=== PATIENT | female | born 1960 | race Caucasian/White ===

== ENCOUNTER 2016-11-14 06:51 | Day surgery (SDC) | payer BC ==
[2016-11-14] MEDS ORDERED: Lactated Ringers 1,000 ML IV SCH (07:30)
[2016-11-14] MEDS ORDERED: fentaNYL 100 MCG/2 ML SDV ONE (07:53)
[2016-11-14] MEDS ORDERED: Propofol 200 MG/20 ML SDV ONE (07:53)
[2016-11-14] MEDS ORDERED: Midazolam 1 MG/ML 2 ML SDV ONE (07:54)
[2016-11-14 09:54] VITALS: BP 120/75
--- NOTE | 2016-11-14 14:17 | OR ---
DATE OF PROCEDURE: 11/14/2016 PREOPERATIVE DIAGNOSIS: History of adenomatous colon polyps. POSTOPERATIVE DIAGNOSIS: Unremarkable colonoscopy, history of adenomatous colon polyps. PROCEDURE: Colonoscopy to the cecum. ANESTHESIA: IV anesthesia with monitored anesthesia care. INDICATION: This 56-year-old white female is referred for a colonoscopy because of a history of adenomatous colon polyps. Her last colonoscopic exam was done about three years ago. I counseled her for the procedure including risks and alternatives, and she gave her informed consent to proceed. DESCRIPTION OF PROCEDURE: The patient was placed in the left lateral decubitus position. IV anesthesia was administered by the Anesthesia Service. Time-out was held. A rectal exam was performed, which was unremarkable. The flexible video Olympus colonoscope was introduced through her anus, up her rectum, and out her colon all the way to the cecum. Once the cecum was reached, the scope was slowly withdrawn, examining the mucosa throughout. No mucosal abnormalities were noted. The scope was retroflexed in the rectum with the distal rectum showing some minor hemorrhoidal tissue. The scope was straightened and removed. She tolerated the procedure well. Karlo Rocha MD /[id number] KALYN
== END 2016-11-14 09:55 | disposition home or self-care (01) ==
LOC: JP.SDS 06:51
PROVIDERS: ATTEND Surgery
DX: Z12.11 Encounter for screening for malignant neoplasm of colon (principal); Z79.899 Other long term (current) drug therapy
CPT/HCPCS: 45378; J2250; J2704; J3010; J7120

== ENCOUNTER 2017-06-14 10:48 | Emergency (ER) | payer BC ==
[2017-06-14 11:17] VITALS: BP 140/73
--- NOTE | 2017-06-14 11:52 | EDM.PDOC ---
ED HPI GENERAL MEDICAL PROBLEM - General Chief Complaint: Genitourinary Problem Stated Complaint: CAN'T URINATE Time Seen by Provider: 06/14/17 11:53 Source of Information: Reports: Patient History Limitations: Reports: No Limitations - History of Present Illness INITIAL COMMENTS - FREE TEXT/NARRATIVE: PT HAD A HYSTERECTOMY ON thursday, sHE ALSO HAD A SLING PLACED ON HER BLADDER. sHE WAS VOIDING OK WHEN SHE LEFT THE HOSP BUT HAS TIME PASSED SHE VOIDED LESS AND LESS. sHE WAS VERY UNCOMFORTABLE THIS AM. Duration: Hour(s):, Getting Worse Location: Reports: Other ( BLADDER PAIN. ) Associated Symptoms: Reports: No Other Symptoms - Related Data Allergies Allergy/AdvReac Type Severity Reaction Status Date / Time No Known Allergies Allergy Verified 06/14/17 11:23 Home Meds: Home Meds Butalb/Acetaminophen/Caffeine [Esgic 50-325-40 MG] 1 each PO Q6HR PRN 01/31/14 [ History] Lutein 20 mg PO DAILY 01/31/14 [History] Multivitamin with Minerals [Multiple Vitamin] 1 tab PO DAILY 01/31/14 [History] Cholecalciferol (Vitamin D3) [Vitamin D] 4,000 unit PO DAILY 04/03/15 [History] Ascorbate Calcium [Vitamin C] 500 mg PO DAILY 11/12/16 [History] Levothyroxine [Synthroid] 75 mcg PO DAILY 11/14/16 [History] Hydrocodone/Acetaminophen [Hydrocodon-Acetaminophen 5-325] 1 tab PO Q4HR PRN 04/21 [History] Ibuprofen [Ibuprofen] 1 tab PO TID 06/14/17 [History] Liothyronine Sodium 1 tab PO DAILY 06/14/17 [History] Past Medical History HEENT History: Reports: Hard of Hearing, Impaired Vision Gastrointestinal History: Reports: Cholelithiasis, Colon Polyp Genitourinary History: Reports: None 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: , 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 Neurological History: Reports: Headaches, Chronic Endocrine/Metabolic History: Reports: Hypothyroidism, Other (See Below) Other Endocrine/Metabolic History: Thyroid goiter - Infectious Disease History Infectious Disease History: Reports: Chicken Pox, Measles, Mumps - Past Surgical History Female Surgical History: Reports: Breast Biopsy, Section, D&C Social & Family History - Tobacco Use Smoking Status *Q: Never Smoker Second Hand Smoke Exposure: No - Caffeine Use Caffeine Use: Reports: None - Alcohol Use Days Per Week of Alcohol Use: 0 - Recreational Drug Use Recreational Drug Use: No ED ROS GENERAL - Review of Systems Review Of Systems: See Below Constitutional: Reports: No Symptoms HEENT: Reports: No Symptoms Respiratory: Reports: No Symptoms Cardiovascular: Reports: No Symptoms Endocrine: Reports: No Symptoms GI/Abdominal: Reports: Other (PAIN POST OPERATIVELY AND BECAUSE OF BLADDER DISTENTION. ) : Reports: Urinary Retention Musculoskeletal: Reports: No Symptoms Skin: Reports: No Symptoms Neurological: Reports: No Symptoms ED EXAM, RENAL/ - Physical Exam Exam: See Below Text/Narrative:: PT ARRIVED VERY UNCOMFORTABLE OVER HER BLADDER AND SHE HAS NOT BEEN ABLE TO VOID. Exam Limited By: No Limitations General Appearance: Alert, Anxious Ears: Normal TMs Nose: Normal Inspection Throat/Mouth: Normal Inspection Head: Atraumatic Neck: Normal Inspection Respiratory/Chest: No Respiratory Distress Cardiovascular: Regular Rate, Rhythm GI/Abdominal: Other ( ABDOMAN IS TENDER, hER BLADDER DOES FEEL DISTENDED. ) (Female) Exam: Deferred, Other Rectal (Female) Exam: Other (PT HAD 3 STOOLS YESTERDAY. ) Back Exam: Normal Inspection Extremities: Normal Inspection Neurological: Alert, Oriented, Normal Cognition Psychiatric: Normal Affect Course - Vital Signs Last Recorded V/S: Last Vital Signs Temp 36.0 C 06/14/17 11:32 Pulse 93 06/14/17 11:32 Resp 16 06/14/17 11:32 BP 140/73 06/14/17 11:32 Pulse Ox 97 06/14/17 11:32 - Orders/Labs/Meds Labs: Laboratory Tests 06/14/17 Range/Units 11:25 Urine Color Green Urine Appearance Clear Urine pH 6.0 (4.5-8.0) Ur Specific [place] 1.010 (1.008-1.030) Urine Protein Negative (NEGATIVE) mg/dL Urine Glucose (UA) Normal (NEGATIVE) mg/dL Urine Ketones 15 H (NEGATIVE) mg/dL Urine Occult Blood Negative (NEGATIVE) Urine Nitrite Negative (NEGATIVE) Urine Bilirubin Negative (NEGATIVE) Urine Urobilinogen Normal (NORMAL) mg/dL Ur Leukocyte Esterase Negative (NEGATIVE) Urine RBC 0-5 (0-5) Urine WBC Not seen (0-5) Ur Epithelial Cells Rare Amorphous Sediment Not seen Urine Bacteria Not seen Urine Mucus Not seen - Re-Assessments/Exams Free Text/Narrative Re-Assessment/Exam: 06/14/17 11:57 BLADDER SCAN SHOWED OVER 1000 CC. a CHATMAN WAS PLACED AND SHE HAD OVER 1000 CC. hER URINE IS NOT INFECTED. Departure - Departure Time of Disposition: 11:51 Disposition: Home, Self-Care 01 Condition: Fair Clinical Impression: Urinary retention - Discharge Information Referrals: Goyo Rivera PA-C [Primary Care Provider] - Forms: ED Department Discharge Care Plan Goals: CHATMAN IN WITH LEG BAG, RTC TO [facility] OR HERE FOR REMOVAL TOMORROW, PUSH FLUIDS.
== END 2017-06-14 12:09 | disposition home or self-care (01) ==
LOC: JP.ED 10:48
DX: R33.9 Retention of urine, unspecified (principal); Z79.899 Other long term (current) drug therapy
CPT/HCPCS: 51702; 51798; 81001; 99284-25

== ENCOUNTER 2017-06-24 14:42 | Emergency (ER) | payer BC ==
[2017-06-24 15:35] VITALS: BP 122/77
--- NOTE | 2017-06-24 16:36 | EDM.PDOC ---
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 HER CHATMAN FELL OUT. sHE HAS BEEN HAVING CONTINUED PROBLEM WITH RETENTION POST HYSTERECCTOMY. Onset: Today Duration: Hour(s):, Other ( tHE CATH FELL OUT. ) Location: Reports: Abdomen Pelvic Pain Score (Numeric/FACES): 7 - Related Data Allergies Allergy/AdvReac Type Severity Reaction Status Date / Time No Known Allergies Allergy Verified 06/24/17 15:35 Home Meds: Home Meds Butalb/Acetaminophen/Caffeine [Esgic 50-325-40 MG] 1 each PO Q6HR PRN 01/31/14 [ History] Lutein 20 mg PO DAILY 01/31/14 [History] Multivitamin with Minerals [Multiple Vitamin] 1 tab PO DAILY 01/31/14 [History] Cholecalciferol (Vitamin D3) [Vitamin D] 4,000 unit PO DAILY 04/03/15 [History] Ascorbate Calcium [Vitamin C] 500 mg PO DAILY 11/12/16 [History] Levothyroxine [Synthroid] 75 mcg PO DAILY 11/14/16 [History] Sulfamethoxazole/Trimethoprim [Bactrim Ds Tablet] 1 each PO DAILY 06/24/17 [ History] Tamsulosin [Tamsulosin 24 Hr] 0.4 mg PO DAILY 06/24/17 [History] Past Medical History HEENT History: Reports: Hard of Hearing, Impaired Vision Gastrointestinal History: Reports: Cholelithiasis, Colon Polyp Genitourinary History: Reports: None 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 bladder sling Social & Family History - Tobacco Use Smoking Status *Q: Never Smoker Second Hand Smoke Exposure: No - Caffeine Use Caffeine Use: Reports: None - Alcohol Use Days Per Week of Alcohol Use: 0 - Recreational Drug Use Recreational Drug Use: No ED ROS GENERAL - Review of Systems Review Of Systems: See Below Constitutional: Reports: No Symptoms HEENT: Reports: No Symptoms Respiratory: Reports: No Symptoms Cardiovascular: Reports: No Symptoms Endocrine: Reports: No Symptoms GI/Abdominal: Reports: No Symptoms : Reports: Urinary Retention, Other ( hER CATH FELL OUT. ) Musculoskeletal: Reports: No Symptoms ED EXAM, RENAL/ - Physical Exam Exam: See Below Text/Narrative:: PT ARRIVED AND STATED THAT SHE WAS HAVING ALOT OF DISCOMFORT OVER HER BLADDER. hER CATH FELL OUT. (Female) Exam: Other (PT IS RECENT POST HYSTERECTOMY. hER CATH FELL OUT. sHE HAS A DISTENDED BLADDER. a 14 CHATMAN WAS INSERTED. sHE DRAIINED ABOUT 1000 CC ) Course - Vital Signs Last Recorded V/S: Last Vital Signs Temp 36.3 C 06/24/17 15:30 Pulse 103 H 06/24/17 15:30 Resp 16 06/24/17 15:30 BP 122/77 06/24/17 15:30 Pulse Ox 95 06/24/17 15:30 Departure - Departure Time of Disposition: 16:35 Disposition: Home, Self-Care 01 Condition: Fair Clinical Impression: Chatman catheter problem, Urinary retention - Discharge Information Referrals: Goyo Rivera PA-C [Primary Care Provider] - Forms: ED Department Discharge Care Plan Goals: RTC IF PROBLEMS.
== END 2017-06-24 17:05 | disposition home or self-care (01) ==
LOC: JP.ED 14:42
DX: Z46.6 Encounter for fitting and adjustment of urinary device (principal); R33.9 Retention of urine, unspecified; E03.9 Hypothyroidism, unspecified; Z79.899 Other long term (current) drug therapy; Z90.710 Acquired absence of both cervix and uterus
CPT/HCPCS: 51702; 99283-25

== ENCOUNTER 2019-04-22 10:53 | Inpatient (IN) | payer OTHER ==
[~2019-04-22 10:53] MED LIST: Acetaminophen 500 MG Tab PO ONE
[2019-04-22] MEDS ORDERED: Acetaminophen 500 MG Tab PO ONE (12:15)
[2019-04-22] MEDS ORDERED: ceFAZolin 2 GM in Sodium Chloride 0.9% 50 ML IV ONE (12:45)
[2019-04-22] MEDS: Dextrose 5%-Lactated Ringers 1,000 ML IV SCH (13:12)
[2019-04-22] MEDS ORDERED: fentaNYL 250 MCG/5 ML SDV ONE (14:42)
[2019-04-22] MEDS ORDERED: Midazolam 1 MG/ML 2 ML SDV ONE (14:42)
[2019-04-22] MEDS ORDERED: Neostigmine Methylsulfate 1 MG/ML 5 ML Syringe ONE (14:44)
[2019-04-22] MEDS ORDERED: Propofol 200 MG/20 ML SDV ONE (14:44)
[2019-04-22] MEDS ORDERED: Glycopyrrolate 0.2 MG/ML 5 ML MDV ONE (14:44)
[2019-04-22] MEDS ORDERED: Rocuronium 50 MG/5 ML Vial ONE (14:44)
[2019-04-22] MEDS ORDERED: Dexamethasone 4 MG/ML SDV ONE (14:44)
[2019-04-22] MEDS ORDERED: Ondansetron 4 MG/2 ML SDV ONE (14:44)
[2019-04-22] MEDS ORDERED: Lactated Ringers 1,000 ML ONE (17:44)
[2019-04-22] MEDS ORDERED: HYDROmorphone 1 MG/ML Syringe IVPUSH PRN (19:49)
[2019-04-22] MEDS ORDERED: Ondansetron 4 MG/2 ML SDV IVPUSH PRN ×2 (19:58→20:02)
[2019-04-22] MEDS: Ondansetron 4 MG/2 ML SDV IVPUSH PRN (20:12)
[2019-04-22] MEDS: HYDROmorphone 0.5 MG/0.5 ML Syringe IVPUSH PRN ×2 (20:12→22:21)
[2019-04-22] MEDS ORDERED: ceFAZolin 1 GM in Sodium Chloride 0.9% 50 ML IV SCH (20:15)
[2019-04-22] MEDS ORDERED: Zonisamide 50 MG Capsule PO SCH (21:00)
[2019-04-22] MEDS ORDERED: Sodium Chloride 0.9% 100 ML ONE (21:12)
[2019-04-22] MEDS ORDERED: ceFAZolin 1 GM Vial ONE (21:12)
[2019-04-22] MEDS: Acetaminophen 325 MG Tab PO SCH ×2 (21:20→23:43)
[2019-04-22] MEDS: ceFAZolin 1 GM in Premix Bag 1 BAG IV SCH (21:28)
[2019-04-23] MEDS: HYDROmorphone 0.5 MG/0.5 ML Syringe IVPUSH PRN ×3 (00:16→04:52)
[2019-04-23] MEDS: Ondansetron 4 MG/2 ML SDV IVPUSH PRN ×3 (00:29→08:33)
[2019-04-23] MEDS: Dextrose 5%-Lactated Ringers 1,000 ML IV SCH (01:37)
[2019-04-23] MEDS: Acetaminophen 325 MG Tab PO SCH (03:01)
[2019-04-23] MEDS ORDERED: Sodium Chloride 0.9% 100 ML ONE (03:13)
[2019-04-23] MEDS ORDERED: ceFAZolin 1 GM Vial ONE (03:13)
[2019-04-23] MEDS: ceFAZolin 1 GM in Premix Bag 1 BAG IV SCH ×2 (04:52→12:20)
[2019-04-23] MEDS ORDERED: Levothyroxine 88 MCG Tab PO SCH (07:30)
[2019-04-23] MEDS ORDERED: Dextrose 5%-Lactated Ringers 1,000 ML IV SCH (07:45)
[2019-04-23] MEDS ORDERED: Acetaminophen 325 MG Tab PO SCH (08:00)
[2019-04-23] MEDS: Levothyroxine 88 MCG Tab PO SCH (08:33)
[2019-04-23] MEDS: BUTALBITAL PO PRN (09:28)
[2019-04-23] MEDS: CAFFEINE PO PRN (09:28)
[2019-04-23] MEDS: APAP PO PRN (09:28)
[2019-04-23] MEDS: ZONISAMIDE 100 MG PO SCH ×2 (19:49→21:32)
[2019-04-24 02:06] VITALS: BP 115/69; PULSE 83
[2019-04-24] MEDS: CAFFEINE PO PRN (05:30)
[2019-04-24] MEDS: APAP PO PRN (05:30)
[2019-04-24] MEDS: BUTALBITAL PO PRN (05:30)
[2019-04-24] MEDS: Levothyroxine 88 MCG Tab PO SCH (07:16)
--- NOTE | 2019-04-25 12:00 | PN ---
DATE OF SERVICE: 04/23/2019 The patient has been afebrile with stable vital signs. Her voice is a little rough this morning. I think that has to do with the extent of dissection around the larynx. Her calcium is 7.9, so we will need to watch that. She is instructed that if she feels any perioral paraesthesia to contact us and otherwise will go to a full liquid diet today, back down a little bit on the IV rate, and then go over to oral pain medicine. Jose R Terry MD /[id number]
--- NOTE | 2019-04-25 14:20 | DISCH ---
CORRECTED REPORT FINAL DIAGNOSES: 1. Enlarging right thyroid nodules despite thyroid suppressive treatment and associated with increasing pressure symptoms. 2. Mass from thyroid gland in the right neck between the sternocleidomastoid muscle and larynx (pathology pending). SECONDARY DIAGNOSES: History of vertigo, history of macular degeneration, history of vitamin D deficiency, history of colon polyps. OPERATIVE PROCEDURES: This was done on 04/22/2019, right thyroid exploration with: 1. Right thyroid lobectomy. 2. Excision of separate mass of uncertain pathology located adjacent to the right sternocleidomastoid muscle and larynx. SUMMARY: This is a 59-year-old female presenting with enlarging set of thyroid nodules along with a quite dominant nodule in the right mid neck, more or less overlying the sternocleidomastoid muscle. Despite thyroid suppressive treatment, these have been increasing in size, and the patient is beginning to develop some pressure symptoms as well. The situation was reviewed with Veronika Da Silva DNP at the Endocrinology section in [facility] and the decision was made to proceed with a right thyroid lobectomy. The nodules have been biopsied previously and appeared to be benign at that time. At the time of exploration, the right thyroid lobectomy was undertaken. There was some chronic inflammation associated with this. 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 It is notable that the visible lesion on the patient's neck with a larger nodule in the right anterolateral mid neck was distinctly separate from the thyroid gland itself. This might be some ectopic thyroid. This appears to be the one that had been biopsied and felt to be benign at that time. Sensing there is no extracapsular extension and the lesion came out as an intact mass, the pathology on this is pending. Postoperatively, the patient's calcium fell from 9.5 preoperatively to 7.9 on postoperative day #1. On postop day #2, was stable without any additional treatment at 7.9, and she has not had any symptoms of hypocalcemia. The patient does have a ANH drain in place due to the extent of the dissection, and she will be sent home with that. We will see her back on Thursday, i.e. in 3 days and get the drain out at that time. We will probably have the pathology report at that point as well. She is presently on 75 mcg a day of Synthroid, and the range recommended postoperatively per Endocrinology was 88-100 mcg per day. The patient has a large number of 50 mcg Synthroid pills, so will send her home on 100 mcg Synthroid daily, and recheck the TSH in roughly 2 months. Otherwise, she will be continuing her present home medications. She is not needing any additional medication for pain at this time. She will be instructed that if she develops any perioral paresthesias or tingling in the fingers that she should take 3 Tums at that point on p.r.n. basis. Otherwise, we will recheck BMP, magnesium, phosphate when she comes in clinic this next Thursday.
--- NOTE | 2019-05-03 08:21 | OR ---
DATE OF PROCEDURE: 04/22/2019 SURGEON: Jose R Terry MD PREOPERATIVE DIAGNOSIS: Enlarging right thyroid nodules despite thyroid suppressive treatment and associated with increasing pressure symptoms. POSTOPERATIVE DIAGNOSES: 1. 2. Enlarging right thyroid nodules despite thyroid suppressive treatment and associated with increasing pressure symptoms. 3. Upper right cervical mass between sternocleidomastoid muscle and larynx (separate from thyroid tissue, pathology pending). OPERATIVE PROCEDURES: Right thyroid exploration with: 1. Right thyroid lobectomy (57452). 2. Excision of separate mass located underneath cervical fascia between right sternocleidomastoid muscle and larynx (45281). ANESTHESIA: General. INDICATION FOR PROCEDURE: This is a 59-year-old female presenting with enlarging thyroid nodules, despite thyroid suppressive treatment. She is also now having significant pressure symptoms. One of the nodules is quite prominent. This has been biopsied previously and felt to be benign. She is status post previous left thyroid lobectomy, so this would be essentially a completion thyroidectomy at this time. The plan will be to proceed with right thyroid lobectomy. A subtotal lobectomy could be considered if there is a difficult dissection in the area of the ligament of Ny. Otherwise, potential risks including bleeding, infection, injury to the recurrent laryngeal nerve, possible short-term or long- term hypoparathyroidism were reviewed, and the patient wishes to proceed. DETAILS OF PROCEDURE: The patient was taken to the operating room and placed in a supine position. After general endotracheal anesthesia was induced, she was positioned with a roll underneath her shoulders to extend the neck. The upper chest and neck areas were prepped and draped. The previous incision two fingerbreadths above the sternal notch was then reused. Eventually, this needed to be extended somewhat more laterally on the right side to allow dissection of the separate mass, which was more superior in the neck. This was carried down through the skin and subcutaneous tissue and platysmal layers. Subplatysmal flaps were then raised superiorly and inferiorly, and the strap muscles were then in the midline. The patient had somewhat of an isthmus still present there, which may account for some of the reported persistent thyroid tissue on the left side. This was reflected rightward off the trachea initially. We then began the dissection laterally. This point of the right thyroid lobe had not been previously dissected, but despite this was associated with marked inflammation suggestive of an underlying inflammatory process such as lymphocytic thyroiditis. At any rate, the dissection was carefully undertaken. The inferior thyroid vein and middle thyroid vein were initially divided, allowing a medial mobilization of the thyroid lobe. As this dissection continued, the inferior thyroid artery was identified and the artery was divided at the branch level medially on the surface of the thyroid, which allowed a lateral reflection of the parathyroid glands, which at this point were both identified in a lateral direction and maintenance of their blood supply. At this point, the upper pole area was dissected and then the upper pole divided at its origin coming off the superior thyroid artery, again with Harmonic Scalpel. The remainder of the gland was then dissected off the tracheal components and lastly over the area of ligament of Ny. This was carefully freed up and the right thyroid lobe specimen delivered from the field. The inspection at this point showed intact parathyroid glands, and they appeared to have good blood supply, and the recurrent laryngeal nerve was identified and found to be intact as it led into the larynx. Superior to this dissection, there was still a large mass measuring up to around 3 cm. This was located behind the cervical fascial layers between the sternocleidomastoid muscle and the larynx. This was gradually dissected free with a combination of blunt and Harmonic scalpel dissection. It did not appear to have any connections to the pharynx site. It was not a salivary gland and it was a firm white circular mass, which was then delivered from the field in an intact manner. Palpation revealed no additional pathology. Pathology on this secondary mass is pending. The area of dissection was inspected. In the extent of the dissection, a 7-Irish Ronald- Rice drain was placed through a stab wound lateral to the incision. The strap muscles were then approximated with a 3-0 Vicryl stitch, which was also used to reapproximate the platysma muscles. The skin was closed with a 4-0 Vicryl subcuticular stitch. Dressing was applied. The patient was taken to the recovery room in satisfactory condition. Jose R Terry MD /[id number]
== END 2019-04-24 08:36 | disposition home or self-care (01) | DRG 627 ==
LOC: JP.SDSSCHI 11:47 → JP.SDS 11:47 → EDSTATUS 12:45 → JP.MS 18:45
PROVIDERS: ADMIT Surgery; ATTEND Surgery
PROC: 0GTH0ZZ Resection of Right Thyroid Gland Lobe, Open Approach (ICD-10-PCS; principal; 2019-04-22)
DX: E04.2 Nontoxic multinodular goiter (principal); E55.9 Vitamin D deficiency, unspecified; G43.909 Migraine, unspecified, not intractable, without status migrainosus; J32.9 Chronic sinusitis, unspecified; Z91.09 Other allergy status, other than to drugs and biological substances; Z90.710 Acquired absence of both cervix and uterus; Z79.890 Hormone replacement therapy
CPT/HCPCS: 36415; 80048; 80053; 83735; 84100; 84443; 85027; 94762; A9270-GY; J0690; J1100; J1170; J2020; J2250; J2405; J2704; J2710; J3010; J3490; J7042; J7050; J7120

== ENCOUNTER 2021-12-20 06:18 | Day surgery (SDC) | payer OTHER ==
[2021-12-20] MEDS ORDERED: Lactated Ringers 1,000 ML IV SCH (07:00)
[2021-12-20] MEDS ORDERED: Propofol 200 MG/20 ML SDV ONE (07:11)
[2021-12-20] MEDS ORDERED: Midazolam 1 MG/ML 2 ML SDV ONE (07:11)
[2021-12-20] MEDS ORDERED: fentaNYL 100 MCG/2 ML SDV ONE (07:11)
[2021-12-20 08:34] VITALS: BP 115/75; PULSE 71
== END 2021-12-20 08:44 | disposition home or self-care (01) ==
LOC: JP.SDS 06:18
PROVIDERS: ATTEND Family Medicine
DX: Z12.11 Encounter for screening for malignant neoplasm of colon (principal); E78.5 Hyperlipidemia, unspecified
CPT/HCPCS: 45378; J2250; J2704; J3010; J7120